=== PATIENT | female | born 1970 | race Asian ===

== ENCOUNTER 2019-03-31 04:53 | Emergency (ER) | payer MEDICAID ==
[~2019-03-31] VITALS: Ht 162.6 cm; Wt 63.5 kg
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
[2019-03-31 05:18] VITALS: BP 150/99
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
[2019-03-31] MEDS ORDERED: Morphine Sulfate 2mg/ml Inj(IV/IM USE ONLY) IVP ONE (05:45)
[2019-03-31 06:34] LABS: BASOPHILS % (AUTO) 0.6 % (0.0-2.0); EOSINOPHILS % (AUTO) 1.5 % (0.0-3.0); HEMATOCRIT 49.2 % (37.0-47.0); HEMOGLOBIN 16.4 G/DL (12.0-16.0); LYMPHOCYTES % (AUTO) 15.5 % (20.0-45.0); MEAN CORPUSCULAR VOLUME 87 FL (80-99); MONOCYTES % (AUTO) 6.9 % (1.0-10.0); NEUTROPHILS % (AUTO) 75.4 % (45.0-75.0); PLATELET COUNT 301 K/UL (150-450); RED BLOOD COUNT 5.63 M/UL (4.20-5.40); RED CELL DISTRIBUTION WIDTH 10.9 % (11.6-14.8); WHITE BLOOD COUNT 9.1 K/UL (4.8-10.8)
[2019-03-31 06:48] LABS: INR 0.9 (0.9-1.1)
[2019-03-31 06:57] LABS: ANION GAP 4 mmol/L (5-15); BLOOD UREA NITROGEN 13 mg/dL (7-18); CALCIUM 9.3 MG/DL (8.5-10.1); CARBON DIOXIDE 33 MMOL/L (21-32); CHLORIDE 98 MMOL/L (98-107); CREATININE 0.5 MG/DL (0.55-1.30); POTASSIUM 3.7 MMOL/L (3.5-5.1); SODIUM 135 MMOL/L (136-145)
[2019-03-31 07:07] LABS: ALANINE AMINOTRANSFERASE 98 U/L (12-78); ALBUMIN 4.7 G/DL (3.4-5.0); ALKALINE PHOSPHATASE 96 U/L (46-116); ASPARTATE AMINO TRANSFERASE 89 U/L (15-37); BILIRUBIN,TOTAL 0.6 MG/DL (0.2-1.0)
--- NOTE | 2019-03-31 07:17 | NUR ---
ED Nurse Note: report received from DARNELL Dean and assumed care, pt off to CT at this time.
--- NOTE | 2019-03-31 07:17 | NUR ---
HAND-OFF: Report given to DARNELL Cruz.
--- NOTE | 2019-03-31 07:30 | NUR ---
ED Nurse Note: pt came back from CT, resting at this time, pt advised to notify staff if needed assist. will cont monitor.
[2019-03-31] MEDS ORDERED: IBUPROFEN400 M1 PO (07:33)
[2019-03-31] MEDS ORDERED: CYCLOBENZAPRINE10 MG ORAL (07:33)
--- NOTE | 2019-03-31 07:43 | Diagnostic Imaging Report ---
EXAM: CT Head Without Intravenous Contrast CLINICAL HISTORY: PAIN TECHNIQUE: Axial computed tomography images of the head brain without intravenous contrast. CTDI is 62.7 mGy and DLP is 1363.6 mGy-cm. One or more of the following dose reduction techniques were used: automated exposure control, adjustment of the mA and or kV according to patient size, use of iterative reconstruction technique. COMPARISON: none FINDINGS: Brain: The cerebella tonsils are slightly low-lying but are not ectopic. No hemorrhage. No significant white matter disease. Ventricles: Unremarkable. No ventriculomegaly. Bones joints: Unremarkable. No acute fracture. Soft tissues: Unremarkable. Vasculature: Slight asymmetry in the density of the sigmoid sinuses is considered physiologic. No definite evidence of dural venous sinus thrombosis or reactive changes in the adjacent parenchyma. Sinuses: Unremarkable as visualized. No acute sinusitis. Mastoid air cells: Unremarkable as visualized. No mastoid effusion. IMPRESSION: Normal noncontrast head CT. Based on index of suspicion, further imaging by MRI could be pursued as clinical warranted.
--- NOTE | 2019-03-31 07:46 | Diagnostic Imaging Report ---
EXAM: CT Cervical Spine Without Intravenous Contrast CLINICAL HISTORY: PAIN TECHNIQUE: Axial computed tomography images of the cervical spine without intravenous contrast. CTDI is 3.5 mGy and DLP is 97.2 mGy-cm. One or more of the following dose reduction techniques were used: automated exposure control, adjustment of the mA and or kV according to patient size, use of iterative reconstruction technique. COMPARISON: none FINDINGS: Vertebrae: Mild multilevel cervical degenerative spondylosis primarily at the discs is present without malalignment or fracture. This is most conspicuous at C5-C6 and C6-C7. Discs spinal canal neural foramina: No significant bony central canal or neuroforaminal stenosis is appreciated. Soft tissues: Unremarkable. IMPRESSION: Multilevel cervical degenerative spondylosis with no fracture, malalignment, aggressive osseous lesion or significant bony spinal canal stenosis.
--- NOTE | 2019-03-31 08:14 | Diagnostic Imaging Report ---
EXAM: CT Abdomen and Pelvis Without Intravenous Contrast CLINICAL HISTORY: PAIN TECHNIQUE: Axial computed tomography images of the abdomen and pelvis without intravenous contrast. CTDI is 16.7 mGy and DLP is 1293.4 mGy-cm. One or more of the following dose reduction techniques were used: automated exposure control, adjustment of the mA and or kV according to patient size, use of iterative reconstruction technique. COMPARISON: none FINDINGS: Lung bases: Unremarkable. No mass. No consolidation. ABDOMEN: Liver: Unremarkable. Gallbladder and bile ducts: Unremarkable. No calcified stones. No ductal dilation. Pancreas: Unremarkable. No ductal dilation. Spleen: Unremarkable. No splenomegaly. Adrenals: Unremarkable. No mass. Kidneys and ureters: Unremarkable. No obstructing stones. No hydronephrosis. Stomach and bowel: Unremarkable. No obstruction. No mucosal thickening. PELVIS: Appendix: No findings to suggest acute appendicitis. Bladder: Unremarkable. No stones. Reproductive: Unremarkable as visualized. ABDOMEN and PELVIS: Intraperitoneal space: Unremarkable. No free air. No significant fluid collection. Bones joints: No acute fracture. No dislocation. Soft tissues: Unremarkable. Vasculature: Unremarkable. No abdominal aortic aneurysm. Lymph nodes: Unremarkable. No enlarged lymph nodes. IMPRESSION: Normal abdomen and pelvis CT. EXAM: CT Chest Without Intravenous Contrast CLINICAL HISTORY: PAIN TECHNIQUE: Axial computed tomography images of the chest without intravenous contrast. CTDI is 0 mGy and DLP is 0 mGy-cm. One or more of the following dose reduction techniques were used: automated exposure control, adjustment of the mA and or kV according to patient size, use of iterative reconstruction technique. COMPARISON: none FINDINGS: Lungs: Mild scarring in the left upper lobe is present. Pleural space: Unremarkable. No pneumothorax. No significant effusion. Heart: Unremarkable. No cardiomegaly. No significant pericardial effusion. Bones joints: Unremarkable. No acute fracture. No dislocation. Soft tissues: Unremarkable. Vasculature: Unremarkable. No thoracic aortic aneurysm. Lymph nodes: Unremarkable. No enlarged lymph nodes. IMPRESSION: No acute pathology in the chest on noncontrast CT.
--- NOTE | 2019-03-31 08:24 | NUR ---
ED Nurse Note: pt cleared to be d/c per ERMD, pt discharge and aftercare instruction provided w/ prescription sent via electronically, pt education done via discussion and handout, pt advised to follow up with pcp or return to ed if changes in condition, vss, ambulatory w/ steady gait, iv d/c and id band removed, pt verbalized understanding and agrees with plan, pt left w/ all belongings, pt reports pt's daugther will drive her home.
[2019-03-31 08:25] VITALS: BP 118/68
== END 2019-03-31 08:24 | disposition home or self-care (01) ==
LOC: EMR 05:32
DX: S16.1XXA Strain of muscle, fascia and tendon at neck level, initial encounter (principal); S50.12XA Contusion of left forearm, initial encounter; S20.212A Contusion of left front wall of thorax, initial encounter; V47.5XXA Car driver injured in collision with fixed or stationary object in traffic accident, initial encounter; Y92.410 Unspecified street and highway as the place of occurrence of the external cause; E11.9 Type 2 diabetes mellitus without complications; I10 Essential (primary) hypertension; M47.9 Spondylosis, unspecified
CPT/HCPCS: 70450; 71250; 72125; 74176; 80053; 84484; 85025; 85610; 85730; 96374; 96375; J2270; J2405; Z7502; 36415; 99284